=== PATIENT | male | born 1975 | race African-American/Black ===

== ENCOUNTER 2022-06-04 05:18 | Emergency (ER) | payer OTHER ==
[~2022-06-04] VITALS: Ht 175.3 cm; Wt 111.0 kg
[2022-06-04] MEDS ORDERED: HYDROcodone-ACET 5/325MG TAB PO ONE (06:00)
[2022-06-04] MEDS ORDERED: TRAM-297 PO (09:26)
[2022-06-04] MEDS ORDERED: clonazePAM 0.5 MG TAB PO ONE (09:30)
[2022-06-04] MEDS ORDERED: cloNIDine HCL 0.1 MG TAB PO ONE (09:45)
[2022-06-04 10:00] VITALS: BP 154/97
== END 2022-06-04 10:14 | disposition home or self-care (01) ==
LOC: EDBD 05:18 → ER 05:18
DX: S16.1XXA Strain of muscle, fascia and tendon at neck level, initial encounter (principal); S39.012A Strain of muscle, fascia and tendon of lower back, initial encounter; K21.9 Gastro-esophageal reflux disease without esophagitis; E78.5 Hyperlipidemia, unspecified; I10 Essential (primary) hypertension; V43.52XA Car driver injured in collision with other type car in traffic accident, initial encounter; Y93.89 Activity, other specified; Y92.89 Other specified places as the place of occurrence of the external cause; Y99.8 Other external cause status
CPT/HCPCS: 71046; 72125; 72131; 93005